=== PATIENT | female | born 1985 | race Caucasian/White ===

== ENCOUNTER 2019-07-06 10:12 | Emergency (ER) | payer BC ==
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
[2019-07-06] MEDS ORDERED: Ibuprofen TAB* 600 MG PO ONE (10:30)
[2019-07-06] MEDS ORDERED: Acetaminophen TAB* 325 MG PO ONE (10:30)
[2019-07-06 10:53] VITALS: BP 134/95
== END 2019-07-06 10:52 | disposition home or self-care (01) ==
LOC: ED 10:12
DX: S09.90XA Unspecified injury of head, initial encounter (principal); V49.88XA Car occupant (driver) (passenger) injured in other specified transport accidents, initial encounter; Y92.9 Unspecified place or not applicable
CPT/HCPCS: 99282; A9270-GY